=== PATIENT | male | born 1950 | race Asian ===

== ENCOUNTER 2021-04-21 17:17 | Inpatient (IN) | payer MEDICARE, OTHER ==
[~2021-04-21] VITALS: Ht 165.1 cm; Wt 62.1 kg
[2021-04-21 17:10] VITALS: BP 143/99
[2021-04-21] MEDS ORDERED: HYDROCODONE/ACETAMINOPHEN 5-325 MG TABLET PO PRN (19:15)
[2021-04-21] MEDS: DEXAMETHASONE 2 MG TABLET PO SCH (20:10)
[2021-04-21] MEDS: ROSUVASTATIN CALCIUM 10 MG TABLET PO SCH (20:10)
[2021-04-21] MEDS: CARBOXYMETHYLCELLULOSE SODIUM 0.4 ML OPHTHALMIC SOLUTION [PF] OU PRN (20:10)
[2021-04-21] MEDS: DOCUSATE SODIUM 100 MG CAPSULE PO SCH (20:12)
[2021-04-21] MEDS: LevETIRAcetam 500 MG TABLET PO SCH (20:12)
[2021-04-21] MEDS: FAMOTIDINE 20 MG TABLET PO SCH (20:12)
[2021-04-21] MEDS: SENNA 187 MG TABLET PO SCH (20:12)
[2021-04-21] MEDS: TAMSULOSIN HCL 0.4 MG CAPSULE PO SCH (20:12)
[2021-04-21] MEDS: ETHYL ALCOHOL 62% ANTISEPTIC NASAL INHALANT 0.6 ML AMPUL NASAL SCH (21:32)
[2021-04-21] MEDS: MELATONIN 3 MG TABLET PO PRN (23:02)
[2021-04-22] VITALS: BP 129/76
[2021-04-22 08:00] VITALS: BP 139/76
[2021-04-22] MEDS: NIFEdipine 60 MG ER TABLET PO SCH (08:18)
[2021-04-22] MEDS: MULTIVITAMINS WITH MINERALS, THERAPEUTIC TABLET PO SCH (08:18)
[2021-04-22] MEDS: DOCUSATE SODIUM 100 MG CAPSULE PO SCH ×2 (08:18→20:15)
[2021-04-22] MEDS: DEXAMETHASONE 2 MG TABLET PO SCH ×2 (08:18→20:15)
[2021-04-22] MEDS: FAMOTIDINE 20 MG TABLET PO SCH ×2 (08:18→20:14)
[2021-04-22] MEDS: ENOXAPARIN SODIUM 40 MG/0.4 ML PF SYRINGE SQ SCH (08:19)
[2021-04-22] MEDS: LevETIRAcetam 500 MG TABLET PO SCH ×2 (08:19→20:15)
[2021-04-22] MEDS: ETHYL ALCOHOL 62% ANTISEPTIC NASAL INHALANT 0.6 ML AMPUL NASAL SCH ×2 (08:47→20:15)
[2021-04-22] MEDS: ACETAMINOPHEN 325 MG TABLET PO PRN ×2 (09:52→20:25)
[2021-04-22 14:40] LABS: BASOPHILS % (AUTO) 0.3 % (0.0-2.0); EOSINOPHILS % (AUTO) 0.2 % (1.0-6.0); HEMATOCRIT 47.3 % (41-53); HEMOGLOBIN 15.7 g/dL (13.5-17.5); LYMPHOCYTES # (AUTO) 0.9 K/uL (1.0-4.8); LYMPHOCYTES % (AUTO) 7.7 % (22.0-44.0); MEAN CORPUSCULAR HEMOGLOBIN 29.8 pg (26.0-34.0); MEAN CORPUSCULAR HGB CONC 33.3 G/dL (31.0-37.0); MEAN CORPUSCULAR VOLUME 90 fL (80-100); MONOCYTES # (AUTO) 0.9 K/uL (0.1-1.0); MONOCYTES % (AUTO) 7.4 % (2.0-9.0); NEUTROPHILS # (AUTO) 10.4 K/uL (1.8-7.7); NEUTROPHILS % (AUTO) 84.4 % (40.0-70.0); PLATELET COUNT (AUTO) 301 K/uL (150-450); RED BLOOD CELL COUNT(AUTO) 5.28 MIL/uL (4.50-5.90); RED CELL DISTRIBUTION WIDTH 13.2 % (11.5-14.5)
[2021-04-22 14:52] LABS: ALBUMIN 3.3 g/dL (3.4-5.0); BILIRUBIN,TOTAL 0.8 mg/dL (0.1-1.0); CALCIUM, TOTAL 8.8 mg/dL (8.8-10.5); CREATININE 1.2 mg/dL (0.60-1.30); POTASSIUM 4.1 mmol/L (3.5-5.1); TOTAL PROTEIN, SERUM 7.2 g/dL (6.4-8.2)
[2021-04-22 15:24] VITALS: BP 140/75
[2021-04-22] MEDS: ROSUVASTATIN CALCIUM 10 MG TABLET PO SCH (20:15)
[2021-04-22] MEDS: MELATONIN 3 MG TABLET PO PRN (20:15)
[2021-04-22] MEDS: CARBOXYMETHYLCELLULOSE SODIUM 0.4 ML OPHTHALMIC SOLUTION [PF] OU PRN (20:15)
[2021-04-22] MEDS: SENNA 187 MG TABLET PO SCH (20:15)
[2021-04-22] MEDS: TAMSULOSIN HCL 0.4 MG CAPSULE PO SCH (20:15)
[2021-04-23] VITALS: BP 141/80
[2021-04-23] MEDS ORDERED: ROSU10TA72 PO (02:07)
[2021-04-23] MEDS ORDERED: NIFE-39 PO (02:07)
[2021-04-23] MEDS ORDERED: ACET650S24 PR (02:07)
[2021-04-23] MEDS ORDERED: FLUO10CA24 PO (02:07)
[2021-04-23] MEDS ORDERED: GABA-1181 PO (02:07)
[2021-04-23] MEDS ORDERED: TRAZ-257 PO (02:07)
[2021-04-23] MEDS: ACETAMINOPHEN 325 MG TABLET PO PRN ×2 (02:48→11:14)
[2021-04-23 08:00] VITALS: BP 142/75
[2021-04-23] MEDS: ETHYL ALCOHOL 62% ANTISEPTIC NASAL INHALANT 0.6 ML AMPUL NASAL SCH ×2 (08:31→20:28)
[2021-04-23] MEDS: MULTIVITAMINS WITH MINERALS, THERAPEUTIC TABLET PO SCH (08:32)
[2021-04-23] MEDS: DEXAMETHASONE 2 MG TABLET PO SCH ×2 (08:32→20:27)
[2021-04-23] MEDS: NIFEdipine 60 MG ER TABLET PO SCH (08:32)
[2021-04-23] MEDS: FAMOTIDINE 20 MG TABLET PO SCH ×2 (08:32→20:27)
[2021-04-23] MEDS: DOCUSATE SODIUM 100 MG CAPSULE PO SCH (08:32)
[2021-04-23] MEDS: LevETIRAcetam 500 MG TABLET PO SCH ×2 (08:32→20:27)
[2021-04-23] MEDS: ENOXAPARIN SODIUM 40 MG/0.4 ML PF SYRINGE SQ SCH (08:33)
[2021-04-23 16:00] LABS: APPEARANCE,URINE CLEAR (CLEAR); BILIRUBIN,URINE NEGATIVE (NEGATIVE); GLUCOSE, URINE (UA) NEGATIVE (NEGATIVE); KETONES,URINE NEGATIVE (NEGATIVE); LEUKOCYTE ESTERASE ,URINE NEGATIVE (NEGATIVE); NITRATE,URINE NEGATIVE (NEGATIVE); OCCULT BLOOD,URINE LARGE (NEGATIVE); PROTEIN,URINE NEGATIVE (NEGATIVE); UROBILINOGEN,URINE 0.2 mg/dL (<=1.0)
[2021-04-23 16:02] VITALS: BP 142/85
[2021-04-23 16:13] LABS: BACTERIA,URINE Rare /HPF (None Seen); SQUAMOUS EPITHELIAL CELL,UR Rare /LPF (None Seen); WBC,URINE 0-2 /HPF (0-5)
[2021-04-23] MEDS: SENNA 187 MG TABLET PO SCH (20:26)
[2021-04-23] MEDS: DOCUSATE SODIUM 250 MG CAPSULE PO SCH (20:27)
[2021-04-23] MEDS: CARBOXYMETHYLCELLULOSE SODIUM 0.4 ML OPHTHALMIC SOLUTION [PF] OU PRN (20:27)
[2021-04-23] MEDS: ROSUVASTATIN CALCIUM 10 MG TABLET PO SCH (20:27)
[2021-04-23] MEDS: TAMSULOSIN HCL 0.4 MG CAPSULE PO SCH (20:27)
[2021-04-23] MEDS: MELATONIN 3 MG TABLET PO PRN (20:27)
[2021-04-24] VITALS: BP 157/77
[2021-04-24 08:10] VITALS: BP 130/81
[2021-04-24] MEDS: DOCUSATE SODIUM 250 MG CAPSULE PO SCH ×2 (08:10→20:25)
[2021-04-24] MEDS: LevETIRAcetam 500 MG TABLET PO SCH ×2 (08:10→20:24)
[2021-04-24] MEDS: MULTIVITAMINS WITH MINERALS, THERAPEUTIC TABLET PO SCH (08:10)
[2021-04-24] MEDS: FAMOTIDINE 20 MG TABLET PO SCH ×2 (08:10→20:25)
[2021-04-24] MEDS: ACETAMINOPHEN 325 MG TABLET PO PRN ×2 (08:10→23:41)
[2021-04-24] MEDS: ENOXAPARIN SODIUM 40 MG/0.4 ML PF SYRINGE SQ SCH (08:11)
[2021-04-24] MEDS: NIFEdipine 60 MG ER TABLET PO SCH (08:11)
[2021-04-24] MEDS: ETHYL ALCOHOL 62% ANTISEPTIC NASAL INHALANT 0.6 ML AMPUL NASAL SCH ×2 (08:11→20:24)
[2021-04-24] MEDS: DEXAMETHASONE 2 MG TABLET PO SCH ×2 (08:11→20:24)
[2021-04-24 16:30] VITALS: BP 134/75
[2021-04-24] MEDS: SENNA 187 MG TABLET PO SCH (20:24)
[2021-04-24] MEDS: ROSUVASTATIN CALCIUM 10 MG TABLET PO SCH (20:24)
[2021-04-24] MEDS: TAMSULOSIN HCL 0.4 MG CAPSULE PO SCH (20:24)
[2021-04-24] MEDS: MELATONIN 3 MG TABLET PO PRN (20:25)
[2021-04-24 23:41] VITALS: BP 146/54
[2021-04-25] MEDS: ETHYL ALCOHOL 62% ANTISEPTIC NASAL INHALANT 0.6 ML AMPUL NASAL SCH ×2 (07:50→20:29)
[2021-04-25] MEDS: MULTIVITAMINS WITH MINERALS, THERAPEUTIC TABLET PO SCH (07:51)
[2021-04-25] MEDS: ENOXAPARIN SODIUM 40 MG/0.4 ML PF SYRINGE SQ SCH (07:51)
[2021-04-25] MEDS: FAMOTIDINE 20 MG TABLET PO SCH ×2 (07:51→20:29)
[2021-04-25] MEDS: NIFEdipine 60 MG ER TABLET PO SCH (07:51)
[2021-04-25] MEDS: LevETIRAcetam 500 MG TABLET PO SCH ×2 (07:51→20:29)
[2021-04-25] MEDS: DEXAMETHASONE 2 MG TABLET PO SCH ×2 (07:51→20:29)
[2021-04-25] MEDS: DOCUSATE SODIUM 250 MG CAPSULE PO SCH ×2 (08:24→20:29)
[2021-04-25 09:10] VITALS: BP 139/81
[2021-04-25 16:30] VITALS: BP 132/68
[2021-04-25] MEDS: SENNA 187 MG TABLET PO SCH (20:29)
[2021-04-25] MEDS: ROSUVASTATIN CALCIUM 10 MG TABLET PO SCH (20:29)
[2021-04-25] MEDS: MIRTAZAPINE 15 MG TABLET PO SCH (20:29)
[2021-04-25] MEDS: TAMSULOSIN HCL 0.4 MG CAPSULE PO SCH (20:29)
[2021-04-26] VITALS: BP 148/77
[2021-04-26] MEDS: ETHYL ALCOHOL 62% ANTISEPTIC NASAL INHALANT 0.6 ML AMPUL NASAL SCH ×2 (07:41→20:19)
[2021-04-26] MEDS: FAMOTIDINE 20 MG TABLET PO SCH ×2 (07:41→20:19)
[2021-04-26] MEDS: NIFEdipine 60 MG ER TABLET PO SCH (07:41)
[2021-04-26] MEDS: DEXAMETHASONE 2 MG TABLET PO SCH ×2 (07:41→20:20)
[2021-04-26] MEDS: LevETIRAcetam 500 MG TABLET PO SCH ×2 (07:41→20:19)
[2021-04-26] MEDS: MULTIVITAMINS WITH MINERALS, THERAPEUTIC TABLET PO SCH (07:41)
[2021-04-26] MEDS: DOCUSATE SODIUM 250 MG CAPSULE PO SCH ×2 (07:42→20:20)
[2021-04-26] MEDS: ENOXAPARIN SODIUM 40 MG/0.4 ML PF SYRINGE SQ SCH (07:42)
[2021-04-26 08:34] VITALS: BP 128/81
[2021-04-26 10:09] LABS: BASOPHILS % (AUTO) 0.4 % (0.0-2.0); EOSINOPHILS % (AUTO) 0.9 % (1.0-6.0); HEMATOCRIT 44.9 % (41-53); HEMOGLOBIN 14.9 g/dL (13.5-17.5); LYMPHOCYTES # (AUTO) 0.9 K/uL (1.0-4.8); LYMPHOCYTES % (AUTO) 6.6 % (22.0-44.0); MEAN CORPUSCULAR HEMOGLOBIN 29.6 pg (26.0-34.0); MEAN CORPUSCULAR HGB CONC 33.2 G/dL (31.0-37.0); MEAN CORPUSCULAR VOLUME 89 fL (80-100); MONOCYTES % (AUTO) 7.2 % (2.0-9.0); NEUTROPHILS # (AUTO) 11.4 K/uL (1.8-7.7); NEUTROPHILS % (AUTO) 84.9 % (40.0-70.0); PLATELET COUNT (AUTO) 324 K/uL (150-450); RED BLOOD CELL COUNT(AUTO) 5.04 MIL/uL (4.50-5.90)
[2021-04-26 10:23] LABS: ANION GAP 7 mmol/L (8-16); CALCIUM, TOTAL 9.1 mg/dL (8.8-10.5); CARBON DIOXIDE 31 mmol/L (22-29); CHLORIDE 103 mmol/L (98-107); CREATININE 1.16 mg/dL (0.60-1.30); GLOMERULAR FILTR. RATE CALC > 60 mL/min (>60); GLUCOSE,RANDOM 108 mg/dL (70-110); PHOSPHORUS 2.7 mg/dL (2.5-4.9); POTASSIUM 5.4 mmol/L (3.5-5.1); SODIUM SERUM 141 mmol/L (136-145); UREA NITROGEN, BLOOD 14 mg/dL (7-18)
[2021-04-26] MEDS ORDERED: SODIUM POLYSTYRENE SULFONATE 15 GM/60 ML SUSPENSION BOTTLE PO ONE (10:45)
[2021-04-26 15:40] VITALS: BP 140/94
[2021-04-26] MEDS: TAMSULOSIN HCL 0.4 MG CAPSULE PO SCH (20:19)
[2021-04-26] MEDS: ROSUVASTATIN CALCIUM 10 MG TABLET PO SCH (20:19)
[2021-04-26] MEDS: MIRTAZAPINE 15 MG TABLET PO SCH (20:19)
[2021-04-26] MEDS: SENNA 187 MG TABLET PO SCH (20:20)
[2021-04-26] MEDS: CARBOXYMETHYLCELLULOSE SODIUM 0.4 ML OPHTHALMIC SOLUTION [PF] OU PRN (20:30)
[2021-04-27 01:06] VITALS: BP 124/72
[2021-04-27] MEDS: MULTIVITAMINS WITH MINERALS, THERAPEUTIC TABLET PO SCH (07:41)
[2021-04-27] MEDS: ETHYL ALCOHOL 62% ANTISEPTIC NASAL INHALANT 0.6 ML AMPUL NASAL SCH ×2 (07:41→21:20)
[2021-04-27] MEDS: LevETIRAcetam 500 MG TABLET PO SCH ×2 (07:42→21:21)
[2021-04-27] MEDS: NIFEdipine 60 MG ER TABLET PO SCH (07:42)
[2021-04-27] MEDS: FAMOTIDINE 20 MG TABLET PO SCH ×2 (07:43→21:20)
[2021-04-27] MEDS: DOCUSATE SODIUM 250 MG CAPSULE PO SCH ×2 (07:43→21:20)
[2021-04-27] MEDS: DEXAMETHASONE 2 MG TABLET PO SCH ×2 (07:43→21:21)
[2021-04-27] MEDS: ENOXAPARIN SODIUM 40 MG/0.4 ML PF SYRINGE SQ SCH (07:45)
[2021-04-27 07:51] LABS: ANION GAP 3 mmol/L (8-16); CALCIUM, TOTAL 8.6 mg/dL (8.8-10.5); CARBON DIOXIDE 34 mmol/L (22-29); CHLORIDE 106 mmol/L (98-107); CREATININE 1.06 mg/dL (0.60-1.30); GLOMERULAR FILTR. RATE CALC > 60 mL/min (>60); GLUCOSE,RANDOM 110 mg/dL (70-110); POTASSIUM 4.5 mmol/L (3.5-5.1); SODIUM SERUM 143 mmol/L (136-145); UREA NITROGEN, BLOOD 12 mg/dL (7-18)
[2021-04-27 08:28] VITALS: BP 138/76
[2021-04-27 15:25] VITALS: BP 133/72
[2021-04-27] MEDS: TAMSULOSIN HCL 0.4 MG CAPSULE PO SCH (21:20)
[2021-04-27] MEDS: MIRTAZAPINE 15 MG TABLET PO SCH (21:20)
[2021-04-27] MEDS: SENNA 187 MG TABLET PO SCH (21:20)
[2021-04-27] MEDS: CARBOXYMETHYLCELLULOSE SODIUM 0.4 ML OPHTHALMIC SOLUTION [PF] OU PRN (21:21)
[2021-04-27] MEDS: ROSUVASTATIN CALCIUM 10 MG TABLET PO SCH (21:21)
[2021-04-28] VITALS: BP 136/72
[2021-04-28] MEDS: ETHYL ALCOHOL 62% ANTISEPTIC NASAL INHALANT 0.6 ML AMPUL NASAL SCH ×2 (07:56→20:47)
[2021-04-28] MEDS: MULTIVITAMINS WITH MINERALS, THERAPEUTIC TABLET PO SCH (07:57)
[2021-04-28] MEDS: ENOXAPARIN SODIUM 40 MG/0.4 ML PF SYRINGE SQ SCH (07:57)
[2021-04-28] MEDS: DEXAMETHASONE 2 MG TABLET PO SCH ×2 (07:58→20:48)
[2021-04-28] MEDS: FAMOTIDINE 20 MG TABLET PO SCH ×2 (07:58→20:48)
[2021-04-28] MEDS: LevETIRAcetam 500 MG TABLET PO SCH ×2 (07:58→20:47)
[2021-04-28] MEDS: DOCUSATE SODIUM 250 MG CAPSULE PO SCH ×2 (07:58→20:47)
[2021-04-28] MEDS: NIFEdipine 60 MG ER TABLET PO SCH (07:58)
[2021-04-28 08:01] VITALS: BP 145/79
[2021-04-28 15:12] VITALS: BP 122/77
[2021-04-28] MEDS: ROSUVASTATIN CALCIUM 10 MG TABLET PO SCH (20:47)
[2021-04-28] MEDS: TAMSULOSIN HCL 0.4 MG CAPSULE PO SCH (20:47)
[2021-04-28] MEDS: SENNA 187 MG TABLET PO SCH (20:48)
[2021-04-28] MEDS: MIRTAZAPINE 15 MG TABLET PO SCH (20:48)
[2021-04-28 20:58] VITALS: BP 137/77
[2021-04-29] VITALS: BP 145/85
[2021-04-29] MEDS: MULTIVITAMINS WITH MINERALS, THERAPEUTIC TABLET PO SCH (07:55)
[2021-04-29] MEDS: DOCUSATE SODIUM 250 MG CAPSULE PO SCH ×2 (07:56→19:53)
[2021-04-29] MEDS: LevETIRAcetam 500 MG TABLET PO SCH ×2 (07:56→19:53)
[2021-04-29] MEDS: FAMOTIDINE 20 MG TABLET PO SCH ×2 (07:57→19:53)
[2021-04-29] MEDS: NIFEdipine 60 MG ER TABLET PO SCH (07:57)
[2021-04-29] MEDS: ENOXAPARIN SODIUM 40 MG/0.4 ML PF SYRINGE SQ SCH (07:57)
[2021-04-29] MEDS: DEXAMETHASONE 2 MG TABLET PO SCH ×2 (07:57→19:53)
[2021-04-29] MEDS: ETHYL ALCOHOL 62% ANTISEPTIC NASAL INHALANT 0.6 ML AMPUL NASAL SCH ×2 (07:58→19:52)
[2021-04-29 10:12] VITALS: BP 131/83
[2021-04-29 16:21] VITALS: BP 136/74
[2021-04-29] MEDS: SENNA 187 MG TABLET PO SCH (19:53)
[2021-04-29] MEDS: ROSUVASTATIN CALCIUM 10 MG TABLET PO SCH (19:53)
[2021-04-29] MEDS: MIRTAZAPINE 15 MG TABLET PO SCH (19:53)
[2021-04-29] MEDS: TAMSULOSIN HCL 0.4 MG CAPSULE PO SCH (19:53)
[2021-04-30] VITALS: BP 145/79
[2021-04-30] MEDS: ETHYL ALCOHOL 62% ANTISEPTIC NASAL INHALANT 0.6 ML AMPUL NASAL SCH ×2 (08:22→20:13)
[2021-04-30] MEDS: ENOXAPARIN SODIUM 40 MG/0.4 ML PF SYRINGE SQ SCH (08:22)
[2021-04-30] MEDS: MULTIVITAMINS WITH MINERALS, THERAPEUTIC TABLET PO SCH (08:23)
[2021-04-30] MEDS: LevETIRAcetam 500 MG TABLET PO SCH ×2 (08:24→20:12)
[2021-04-30] MEDS: DOCUSATE SODIUM 250 MG CAPSULE PO SCH ×2 (08:24→20:12)
[2021-04-30] MEDS: FAMOTIDINE 20 MG TABLET PO SCH ×2 (08:24→20:12)
[2021-04-30] MEDS: DEXAMETHASONE 2 MG TABLET PO SCH ×2 (08:24→20:12)
[2021-04-30] MEDS: NIFEdipine 60 MG ER TABLET PO SCH (08:24)
[2021-04-30] MEDS: ACETAMINOPHEN 325 MG TABLET PO PRN (09:22)
[2021-04-30 09:29] VITALS: BP 150/75
[2021-04-30 15:45] VITALS: BP 152/81
[2021-04-30] MEDS: SENNA 187 MG TABLET PO SCH (20:11)
[2021-04-30] MEDS: TAMSULOSIN HCL 0.4 MG CAPSULE PO SCH (20:12)
[2021-04-30] MEDS: ROSUVASTATIN CALCIUM 10 MG TABLET PO SCH (20:12)
[2021-04-30] MEDS: MIRTAZAPINE 15 MG TABLET PO SCH (20:12)
[2021-04-30] MEDS: CARBOXYMETHYLCELLULOSE SODIUM 0.4 ML OPHTHALMIC SOLUTION [PF] OU PRN (20:12)
[2021-04-30 23:31] VITALS: BP 123/69
[2021-05-01] VITALS: BP 123/69
[2021-05-01] MEDS: ETHYL ALCOHOL 62% ANTISEPTIC NASAL INHALANT 0.6 ML AMPUL NASAL SCH ×2 (07:51→20:36)
[2021-05-01] MEDS: ENOXAPARIN SODIUM 40 MG/0.4 ML PF SYRINGE SQ SCH (07:52)
[2021-05-01] MEDS: MULTIVITAMINS WITH MINERALS, THERAPEUTIC TABLET PO SCH (07:53)
[2021-05-01] MEDS: DEXAMETHASONE 2 MG TABLET PO SCH ×2 (07:53→20:36)
[2021-05-01] MEDS: DOCUSATE SODIUM 250 MG CAPSULE PO SCH ×2 (07:53→20:35)
[2021-05-01] MEDS: NIFEdipine 60 MG ER TABLET PO SCH (07:54)
[2021-05-01] MEDS: LevETIRAcetam 500 MG TABLET PO SCH ×2 (07:55→20:36)
[2021-05-01] MEDS: FAMOTIDINE 20 MG TABLET PO SCH ×2 (07:55→20:36)
[2021-05-01 09:32] VITALS: BP 139/86
[2021-05-01 16:28] VITALS: BP 151/84
[2021-05-01] MEDS: ROSUVASTATIN CALCIUM 10 MG TABLET PO SCH (20:35)
[2021-05-01] MEDS: CARBOXYMETHYLCELLULOSE SODIUM 0.4 ML OPHTHALMIC SOLUTION [PF] OU PRN (20:36)
[2021-05-01] MEDS: TAMSULOSIN HCL 0.4 MG CAPSULE PO SCH (20:36)
[2021-05-01] MEDS: SENNA 187 MG TABLET PO SCH (20:36)
[2021-05-01] MEDS: MIRTAZAPINE 15 MG TABLET PO SCH (20:36)
[2021-05-01 21:01] VITALS: BP 128/73
[2021-05-02 05:40] VITALS: BP 138/89
[2021-05-02] MEDS: FAMOTIDINE 20 MG TABLET PO SCH ×2 (07:58→21:24)
[2021-05-02] MEDS: ENOXAPARIN SODIUM 40 MG/0.4 ML PF SYRINGE SQ SCH (07:58)
[2021-05-02] MEDS: NIFEdipine 60 MG ER TABLET PO SCH (07:58)
[2021-05-02] MEDS: LevETIRAcetam 500 MG TABLET PO SCH ×2 (07:58→21:24)
[2021-05-02] MEDS: DEXAMETHASONE 2 MG TABLET PO SCH ×2 (07:58→21:24)
[2021-05-02] MEDS: MULTIVITAMINS WITH MINERALS, THERAPEUTIC TABLET PO SCH (07:58)
[2021-05-02] MEDS: DOCUSATE SODIUM 250 MG CAPSULE PO SCH ×2 (07:59→21:24)
[2021-05-02] MEDS: ETHYL ALCOHOL 62% ANTISEPTIC NASAL INHALANT 0.6 ML AMPUL NASAL SCH ×2 (07:59→21:24)
[2021-05-02 08:01] VITALS: BP 130/79
[2021-05-02] MEDS: ACETAMINOPHEN 325 MG TABLET PO PRN (09:27)
[2021-05-02 15:03] VITALS: BP 137/90
[2021-05-02] MEDS: TAMSULOSIN HCL 0.4 MG CAPSULE PO SCH (21:24)
[2021-05-02] MEDS: ROSUVASTATIN CALCIUM 10 MG TABLET PO SCH (21:24)
[2021-05-02] MEDS: SENNA 187 MG TABLET PO SCH (21:24)
[2021-05-02] MEDS: CARBOXYMETHYLCELLULOSE SODIUM 0.4 ML OPHTHALMIC SOLUTION [PF] OU PRN (21:24)
[2021-05-02] MEDS: MIRTAZAPINE 15 MG TABLET PO SCH (21:24)
[2021-05-03] VITALS: BP 148/76
[2021-05-03 08:01] VITALS: BP 130/75
[2021-05-03] MEDS: MULTIVITAMINS WITH MINERALS, THERAPEUTIC TABLET PO SCH (08:09)
[2021-05-03] MEDS: LevETIRAcetam 500 MG TABLET PO SCH ×2 (08:10→19:32)
[2021-05-03] MEDS: DEXAMETHASONE 2 MG TABLET PO SCH ×2 (08:10→19:32)
[2021-05-03] MEDS: DOCUSATE SODIUM 250 MG CAPSULE PO SCH ×2 (08:10→19:32)
[2021-05-03] MEDS: NIFEdipine 60 MG ER TABLET PO SCH (08:10)
[2021-05-03] MEDS: ENOXAPARIN SODIUM 40 MG/0.4 ML PF SYRINGE SQ SCH (08:10)
[2021-05-03] MEDS: FAMOTIDINE 20 MG TABLET PO SCH ×2 (08:11→19:32)
[2021-05-03] MEDS: ETHYL ALCOHOL 62% ANTISEPTIC NASAL INHALANT 0.6 ML AMPUL NASAL SCH ×2 (08:12→19:32)
[2021-05-03] MEDS ORDERED: CARB30DR OU (12:04)
[2021-05-03] MEDS ORDERED: DOCU-350 PO (12:04)
[2021-05-03] MEDS ORDERED: DEXA2 PO (12:04)
[2021-05-03] MEDS ORDERED: FAMO20 PO (12:04)
[2021-05-03] MEDS ORDERED: LEVE500T8 PO (12:04)
[2021-05-03] MEDS ORDERED: NIFE-39 PO (12:04)
[2021-05-03] MEDS ORDERED: ROSU10TA72 PO (12:04)
[2021-05-03] MEDS ORDERED: MIRT-89 PO (12:04)
[2021-05-03] MEDS ORDERED: TAMS-13 PO (12:04)
[2021-05-03] MEDS ORDERED: MULT-1239 PO (12:04)
[2021-05-03] MEDS ORDERED: SENN-187 PO (12:04)
[2021-05-03 16:30] VITALS: BP 136/81
[2021-05-03] MEDS: SENNA 187 MG TABLET PO SCH (19:31)
[2021-05-03] MEDS: TAMSULOSIN HCL 0.4 MG CAPSULE PO SCH (19:31)
[2021-05-03] MEDS: MIRTAZAPINE 15 MG TABLET PO SCH (19:31)
[2021-05-03] MEDS: ROSUVASTATIN CALCIUM 10 MG TABLET PO SCH (20:12)
[2021-05-04 02:15] VITALS: BP 127/66
[2021-05-04] MEDS: DEXAMETHASONE 2 MG TABLET PO SCH (08:33)
[2021-05-04] MEDS: ENOXAPARIN SODIUM 40 MG/0.4 ML PF SYRINGE SQ SCH (08:33)
[2021-05-04] MEDS: NIFEdipine 60 MG ER TABLET PO SCH (08:33)
[2021-05-04] MEDS: FAMOTIDINE 20 MG TABLET PO SCH (08:34)
[2021-05-04] MEDS: DOCUSATE SODIUM 250 MG CAPSULE PO SCH ×2 (08:34→08:38)
[2021-05-04] MEDS: MULTIVITAMINS WITH MINERALS, THERAPEUTIC TABLET PO SCH (08:34)
[2021-05-04] MEDS: LevETIRAcetam 500 MG TABLET PO SCH (08:36)
[2021-05-04] MEDS: ETHYL ALCOHOL 62% ANTISEPTIC NASAL INHALANT 0.6 ML AMPUL NASAL SCH (08:36)
[2021-05-04 10:23] VITALS: BP 129/71
== END 2021-05-04 10:06 | disposition home or self-care (01) | DRG 57 ==
LOC: 2WR 17:39
PROVIDERS: ADMIT Physical Medicine & Rehabilitation; ATTEND Physical Medicine & Rehabilitation
DX: I69.351 Hemiplegia and hemiparesis following cerebral infarction affecting right dominant side (principal); E46 Unspecified protein-calorie malnutrition; R41.4 Neurologic neglect syndrome; R47.01 Aphasia; D72.829 Elevated white blood cell count, unspecified; E78.5 Hyperlipidemia, unspecified; E86.0 Dehydration; I10 Essential (primary) hypertension; J45.909 Unspecified asthma, uncomplicated; N40.1 Benign prostatic hyperplasia with lower urinary tract symptoms; R33.8 Other retention of urine; Z68.22 Body mass index [BMI] 22.0-22.9, adult
CPT/HCPCS: 80048; 80053; 81001; 83735; 84100; 85025; 87081; 92507; 92523; 93970; 97110; 97112; 97116; 97150; 97163; 97167; 97530; 97535; 99366; J1650; J8540